=== PATIENT | female | born 1950 ===

== ENCOUNTER 2025-04-30 08:51 | Outpatient (AMB) | payer MEDICARE, SELFPAY ==
--- NOTE | 2025-04-30 08:37 | MHC.PC.OV ---
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: No Accompanied by: Self / Same As Patient Allergies clindamycin Allergy (Intermediate, Verified 04/30/25 09:25) cdiff clonidine Allergy (Intermediate, Verified 04/30/25 09:25) Dizziness doxycycline Allergy (Intermediate, Verified 04/30/25 09:25) Angioedema Iodinated Contrast Media (Contrast Dye) Allergy (Intermediate, Verified 04/30/25 09:25) mild tingling of tongue, cheek numbness irbesartan Allergy (Intermediate, Verified 04/30/25 09:25) disorientation Penicillins Allergy (Intermediate, Verified 04/30/25 09:25) diarrhea, difficulty breathing, wheezing vancomycin Allergy (Intermediate, Verified 04/30/25 09:25) abdominal discomfort verapamil Allergy (Intermediate, Verified 04/30/25 09:25) disorientation carvedilol Allergy (Verified 04/30/25 09:25) toxicity diphenhydramine (From Benadryl) Allergy (Verified 04/30/25 09:25) rapid heart rate, accelerated metabolism levofloxacin Allergy (Verified 04/30/25 09:25) toxicity, increased digestive distress salicylates Allergy (Verified 04/30/25 09:25) metabolic issues shellfish derived (shellfish) Allergy (Verified 04/30/25 09:25) onset of histamines albuterol (From Ventolin HFA) Adverse Reaction (Mild, Verified 04/30/25 09:25) ineffective Medication List - Last Reconciled 04/30/25 by Carmelita Harris MD albuterol sulfate 90 mcg/actuation (Ventolin HFA) inhalation albuterol sulfate 2.5 mg inhalation Q6H carisoprodol 350 mg PO BEDTIME cholecalciferol (vitamin D3) 1,250 mcg PO QWEEK epinephrine (EpiPen) 0.3 mg IM Q10M PRN fluorometholone 0.1% 1 drp ophthalmic (eye) BID meclizine 12.5 mg PO TID PRN oxycodone-acetaminophen 5-325 mg 0.25 tabs PO .QHS PRN prednisone 10 mg PO DAILY PRN Tobacco use date assessed: 04/30/25 Fall risk assessment: No Falls in past year Last assessed Fall Risk: 04/30/25 Dental Screening Dental Screen Date: 04/30/25 Did you have a dental visit in the last 12 months?: Yes Did you have a dental problem in the last 6 months where you did not have access to dental care?: No Was dental information given to patient?: Patient has dentist HPI HPI Comments History of Present Illness Details The patient is a 75-year-old female presenting [facility]. Recent appendectomy: Appendectomy was performed recently; recovery was prolonged to three weeks with fatigue noted. Post-surgery, experienced pulling sensation and umbilical hernia. Partial umbilical hernia: Herniation noted post-appendectomy, attributed to surgical factors. Suspected gallbladder issues: Assessed pulling sensations near gallbladder, history of cholelithiasis. 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 Mitral regurgitation :currently asymptomatic. Asthma-stable Lung nodules: Noted nodules on recent imaging at outside facility, asymptomatic, pt has declined workup in the past. Will obtain records. Allergies to meds: has seen fuel house attendant before and had desensitization testing. Interesting in checking amoxicillin since she has upcoming dental procedures and has history of C. diff and endocarditis. Surgical History: - Appendectomy Social History: - Discussed daily physical activities related to work: frequently getting up and down for tasks Review of Systems - Cardiovascular: no chest pain - Respiratory: no sob - Gastrointestinal: Denies current significant symptoms, had appendectomy Physical Exam - Gen: NAD - Card- soft murmur across precordium - Chest: CTABL - Abdominal- More distension on the right side than left, normoactive bowel sounds - Extr: no edema bilaterally Assessment and Plan 1. Recent appendectomy - stable 2. Partial umbilical hernia - No immediate intervention 3. Suspected gallbladder issues - Continue observation 4. Chronic Hypertension - Conservative management 5. Mitral regurgitation - Cardiology follow-up if needed, will obtain notes from [facility] 6. Lung nodules - Re-examine nodules in future studies 7. Asthma-stable, continue current regimen 8. Allergies- referral to Dr. Abrams who she has seen before. Patient Instructions - Monitor blood pressure - Follow up with fuel house attendant [facility] Medical History (Updated 04/30/25 @ 12:48 by Carmelita Harris MD) C. 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 How often do you have a drink containing alcohol?: 4 or more times a week 2. How many drinks containing alcohol do you have on a typical day when you are drinking?: 1 or 2 3. How often do you have six or more drinks on one occasion?: Never Total Score: 4 Physical exam (Primary Care) Vital Signs: Last Vital Signs Temp 97.3 F 04/30/25 09:05 Pulse 83 04/30/25 09:05 Resp 16 04/30/25 09:05 BP 130/74 04/30/25 09:05 Pulse Ox 96 04/30/25 09:05 Oxygen Delivery Method Room Air 04/30/25 09:05 BMI result Body Mass Index 23.9 Tobacco/Smoking Status: Tobacco use Status Tobacco use date assessed 04/30/25 04/30/25 08:45 Patient Tobacco Use Status Former Tobacco user 04/30/25 09:25 e-Cigarette/Vaping Use Never Used 04/30/25 09:25 Coding Level of Care Code Est Pt Level 4 (06729) Complex EM visit Add On G2211 Diagnoses Primary hypertension I10 Hypertension type: primary hypertension Mitral valve insufficiency, unspecified etiology I34.0 Cardiac valve disease etiology: etiology unspecified Mild intermittent asthma without complication J45.20 Asthma severity: mild Asthma complication type: uncomplicated Asthma persistence: intermittent Assessment & Plan Assessment & Plan (1) Hypertension: Code(s): I10 - Essential (primary) hypertension Category: Medical Qualifiers: Hypertension type: primary hypertension Qualified Code(s): I10 - Essential (primary) hypertension (2) Mitral regurgitation: Code(s): I34.0 - Nonrheumatic mitral (valve) insufficiency Category: Medical Qualifiers: Cardiac valve disease etiology: etiology unspecified Qualified Code(s): I34.0 - Nonrheumatic mitral (valve) insufficiency (3) Asthma: Code(s): J45.909 - Unspecified asthma, uncomplicated Category: Medical Qualifiers: Asthma severity: mild Asthma complication type: uncomplicated Asthma persistence: intermittent Qualified Code(s): J45.20 - Mild intermittent asthma, uncomplicated Plan - Continue to monitor blood pressure - Complete lab tests - Obtain medical records - Amoxicillin sensitivity testing Orders: Orders Comprehensive Met. Panel Today I10 - Essential (primary) hypertension, K58.9 - Irritable bowel syndrome, unspecified Complete Blood Count Auto Diff Today I10 - Essential (primary) hypertension, K58.9 - Irritable bowel syndrome, unspecified Microalbumin, Random (w Creat) Today I10 - Essential (primary) hypertension, K58.9 - Irritable bowel syndrome, unspecified Referrals Allergy & Immunology Referral Z88.0 - Allergy status to penicillin
[2025-04-30 09:05] VITALS: BP 130/74; PULSE 83; RESP 16; TEMP 36.3; O2SAT 96; BMI 23.9
== END 2025-04-30 11:48 | disposition home or self-care (01) ==
LOC: HO.HMCHD 08:52
PROVIDERS: PCP Internal Medicine; Visit Provider Internal Medicine
DX: I10 Essential (primary) hypertension (principal); I34.0 Nonrheumatic mitral (valve) insufficiency; J45.20 Mild intermittent asthma, uncomplicated

== ENCOUNTER 2025-04-30 10:23 | Outpatient (REF) | payer MEDICARE, SELFPAY ==
[2025-04-30 11:19] LABS: MANUAL DIFF FLAG NO
[2025-04-30 11:30] LABS: Hematocrit 45.1 % (37.0-47.0); Hemoglobin 14.7 g/dl (12.0-16.0); Imm Gran Abs Auto 0.02 X10*3/uL (0.00-0.03); Imm Gran Pct Auto 0.3 % (0.0-0.4); Lymphocytes Absolute Auto 1.8 X10*3/uL (1.2-4.9); Mean Corpuscular HGB Conc 32.6 g/dl (31.0-35.0); Mean Corpuscular Hemoglobin 30.4 pg (27.0-33.0); Mean Corpuscular Volume 93.4 fL (80.0-98.0); NRBC Abs Auto 0.000 X10*3/uL (0.0-0.012); NRBC Pct Auto 0.0 /100WBC (0.0-0.2); Platelet Count 160 X10*3/uL (160-400); Red Blood Count 4.83 X10*6/uL (4.20-5.50); White Blood Count 6.3 X10*3/uL (4.8-10.8)
[2025-04-30 11:40] LABS: Alanine Aminotransferase 20 U/L (0-31); Albumin Level 4.4 g/dL (3.5-5.0); Alkaline Phosphatase 68 U/L (39-117); Anion Gap 11 (12-20); Aspartate Amino Transferase 19 U/L (5-31); Blood Urea Nitrogen 12 mg/dL (9-16); Calcium 9.6 mg/dL (8.4-10.2); Carbon Dioxide 29 mmol/L (22-29); Chloride 106 mmol/L (96-108); Estimated Glomerular Filt Rate > 60; Potassium 3.8 mmol/L (3.3-5.1); Sodium 142 mmol/L (135-145); Total Protein 6.5 g/dL (6.5-8.0)
[2025-04-30 12:10] LABS: Microalbum/Creatinine Ratio Ur 7.4 ug/mg cr (<30)
== END 2025-04-30 10:24 | disposition home or self-care (01) ==
LOC: HO.10HDL 10:23
PROVIDERS: Visit Provider Internal Medicine
DX: I10 Essential (primary) hypertension (principal); K58.9 Irritable bowel syndrome, unspecified; R91.8 Other nonspecific abnormal finding of lung field; I34.0 Nonrheumatic mitral (valve) insufficiency; J45.20 Mild intermittent asthma, uncomplicated; Z88.0 Allergy status to penicillin
CPT/HCPCS: 36415; 80053; 82043; 82570; 85025; 99212